=== PATIENT | female | born 1935 | race Caucasian/White ===

== ENCOUNTER 2021-01-18 12:07 | Emergency (ER) | payer OTHER ==
[~2021-01-18] VITALS: Ht 157.5 cm; Wt 40.4 kg
[2021-01-18] MEDS ORDERED: COZAAR50 MG PO (12:19)
[2021-01-18] MEDS ORDERED: ZOCOR40 MG PO (12:20)
[2021-01-18] MEDS ORDERED: PROTONIX40 MG PO (12:20)
[2021-01-18] MEDS ORDERED: ELIQUIS2.5 MG PO (12:20)
[2021-01-18] MEDS ORDERED: TOPROL XL25 M1 PO (12:20)
[2021-01-18] MEDS ORDERED: SYNTHROID50 MCG PO (12:21)
[2021-01-22] MEDS ORDERED: XANAX XR2 MG PO (11:28)
== END 2021-01-18 15:37 | disposition home or self-care (01) ==
LOC: ER 12:07
DX: I16.0 Hypertensive urgency (principal); I10 Essential (primary) hypertension; Z03.818 Encounter for observation for suspected exposure to other biological agents ruled out

== ENCOUNTER → 2021-01-22 | Emergency (ER) | payer OTHER ==
[~2021-01-22] VITALS: Ht 157.5 cm; Wt 40.4 kg
[~2021-01-22] MED LIST: COZAAR50 MG PO; ELIQUIS2.5 MG PO; PROTONIX40 MG PO; SYNTHROID50 MCG PO; TOPROL XL25 M1 PO; XANAX XR2 MG PO; ZOCOR40 MG PO
== END | disposition home or self-care (01) ==
LOC: ER 11:11
DX: S00.03XA Contusion of scalp, initial encounter (principal); S70.02XA Contusion of left hip, initial encounter; S70.01XA Contusion of right hip, initial encounter; M54.2 Cervicalgia; R07.89 Other chest pain; W18.39XA Other fall on same level, initial encounter; Y93.89 Activity, other specified; Y92.018 Other place in single-family (private) house as the place of occurrence of the external cause; Y99.8 Other external cause status

== ENCOUNTER → 2021-03-03 | Emergency (ER) | payer OTHER ==
[~2021-03-03] VITALS: Ht 157.5 cm; Wt 38.6 kg
== END | disposition designated cancer center or children's hospital (05) ==
LOC: ER 11:34
DX: I62.01 Nontraumatic acute subdural hemorrhage (principal); I11.9 Hypertensive heart disease without heart failure; R41.0 Disorientation, unspecified; R51.9 Headache, unspecified; R40.2412 Glasgow coma scale score 13-15, at arrival to emergency department